=== PATIENT | male | born 1960 | race Caucasian/White ===

== ENCOUNTER 2018-09-03 08:08 | Day surgery (SDC) | payer OTHER ==
[2018-09-03] MEDS ORDERED: BACITRACIN/POLYMYXIN 28.35 GM OINT TOP (11:05)
[2018-09-03] MEDS ORDERED: PROPOFOL 20 ML (11:24)
[2018-09-03] MEDS ORDERED: CEFAZOLIN 1 GM INJ (11:24)
[2018-09-03] MEDS ORDERED: ROCURONIUM 50 MG INJ (11:24)
[2018-09-03] MEDS ORDERED: MIDAZOLAM 1 MG/ML 2 ML INJ (11:25)
[2018-09-03] MEDS ORDERED: FENTAnyl 50 MCG/ML VIAL ×2 (11:25→11:38)
[2018-09-03] MEDS ORDERED: METOCLOPRAMIDE 10 MG INJ IV (11:30)
[2018-09-03] MEDS ORDERED: FENTAnyl 50 MCG/ML VIAL IV ×2 (11:30)
[2018-09-03] MEDS ORDERED: EPHEDrine SULFATE 50 MG/5 ML SYG IV (11:30)
[2018-09-03] MEDS ORDERED: ONDANSETRON 4 MG INJ IV (11:30)
[2018-09-03] MEDS ORDERED: hydrALAzine 20 MG INJ IV (11:30)
[2018-09-03] MEDS ORDERED: LABETALOL HCL 20MG INJ IV (11:30)
[2018-09-03] MEDS ORDERED: ONDANSETRON 4 MG INJ (11:34)
[2018-09-03] MEDS ORDERED: KETOROLAC 30 MG INJ (11:35)
[2018-09-03] MEDS ORDERED: DEXAMETHASONE 4 MG/ML 5 ML INJ (11:35)
[2018-09-03] MEDS ORDERED: METOCLOPRAMIDE 10 MG INJ (11:35)
[2018-09-03] MEDS ORDERED: hydrALAzine 20 MG INJ ×2 (11:37→11:38)
[2018-09-03] MEDS ORDERED: LABETALOL HCL 20MG INJ (11:38)
[2018-09-03] MEDS: COCAINE 4% 4 ML TOP (11:48)
[2018-09-03] MEDS ORDERED: PHENYLephrine (100 MCG/ML) 5ML SYG ×5 (11:48→12:16)
[2018-09-03] MEDS: LIDOCAINE 1%/EPI (1:100,000) (MDV) 20 ML (11:48)
[2018-09-03] MEDS ORDERED: PHENYLephrine 10 MG INJ (11:48)
[2018-09-03] MEDS ORDERED: EPHEDrine 25 MG/5 ML SYG (11:48)
[2018-09-03] MEDS ORDERED: SUGAMMADEX SODIUM 200 MG/2 ML VIAL IV (12:05)
[2018-09-03] MEDS: FENTAnyl 50 MCG/ML VIAL IV ×3 (13:12→13:30)
[2018-09-03] MEDS ORDERED: LORAZEPAM 2 MG INJ (13:32)
[2018-09-03] MEDS: LORAZEPAM 2 MG INJ IV (13:57)
== END 2018-09-03 15:15 | disposition home or self-care (01) ==
LOC: SDS 08:08
DX: J34.2 Deviated nasal septum (principal); J34.3 Hypertrophy of nasal turbinates; J30.9 Allergic rhinitis, unspecified; J33.9 Nasal polyp, unspecified; I10 Essential (primary) hypertension
CPT/HCPCS: 30140; 88300; 88304; 93005